=== PATIENT | male | born 1945 | race Caucasian/White ===

== ENCOUNTER 2018-02-01 07:56 | Inpatient (IN) | payer MEDICARE, BC ==
[~2018-02-01] VITALS: Ht 170.2 cm; Wt 74.8 kg
[2018-02-01] MEDS ORDERED: IV NORMAL SALINE 1000 ML BAG IV ONE (08:00)
--- NOTE | 2018-02-01 08:06 | NUR ---
pt is in room #1b. dr lovelace evaluated the pt.
[2018-02-01] MEDS ORDERED: LIPITOR (08:16)
[2018-02-01] MEDS ORDERED: WELLBUTRIN (08:16)
[2018-02-01] MEDS ORDERED: PLAVIX (08:16)
[2018-02-01] MEDS ORDERED: MONTELUKAST (08:16)
[2018-02-01] MEDS ORDERED: NEBIVOLOL (08:16)
[2018-02-01] MEDS ORDERED: AMBIEN (08:16)
[2018-02-01] MEDS ORDERED: SINGULAIR (08:16)
--- NOTE | 2018-02-01 08:17 | NUR ---
PT UNABLE TO GIVE INFORMATION ON MED DOSAGES - STATES HE DOES NOT KNOW - KEPT DOZING OFF DURING RECON ATTEMPT -STATES HE IS VERY TIRED , LITTLE SLEEP LAST NGHT.
[2018-02-01 08:27] LABS: BASOPHILS % (AUTO) 0.9 % (0.0-2.0); EOSINOPHILS # (AUTO) 0.4 K/uL (0.0-0.7); EOSINOPHILS % (AUTO) 7.3 % (0.0-7.0); HEMATOCRIT 40.3 % (36.7-47.1); HEMOGLOBIN 14.1 g/dL (12.5-16.3); LYMPHOCYTES % (AUTO) 17.9 % (20.5-51.5); MEAN CORPUSCULAR HEMOGLOBIN 32.4 uug (23.8-33.4); MEAN CORPUSCULAR HGB CONC 35 g/dL (32.5-36.3); MEAN CORPUSCULAR VOLUME 92.8 fL (73.0-96.2); MONOCYTES # (AUTO) 0.5 K/uL (2.0-10.0); MONOCYTES % (AUTO) 8.5 % (0.0-11.0); NEUTROPHILS # (AUTO) 3.6 K/uL (1.8-8.9); NEUTROPHILS % (AUTO) 65.4 % (38.5-71.5); PLATELET COUNT (AUTO) 215 K/uL (152-348); RED BLOOD CELL COUNT(AUTO) 4.34 MIL/uL (4.06-5.63); WHITE BLOOD COUNT (AUTO) 5.5 K/uL (3.6-10.2)
[2018-02-01 08:36] LABS: CARBON DIOXIDE 24 mmol/L (21-32); CHLORIDE 107 mmol/L (98-107); CREATININE 1.1 mg/dL (0.6-1.3); GLUCOSE 124 mg/dL (74-106); POTASSIUM 3.6 mmol/L (3.5-5.1); UREA NITROGEN, BLOOD 22 mg/dL (7-18)
[2018-02-01 08:50] LABS: ETHANOL < 3 MG/DL (0-0)
[2018-02-01 08:52] LABS: ALANINE AMINOTRANSFERASE 34 U/L (16-63); ALKALINE PHOSPHATASE 34 U/L (50-136); ASPARTATE AMINOTRANSFERASE 36 U/L (15-37); BILIRUBIN,DIRECT 0.1 mg/dL (0.0-0.2); BILIRUBIN,TOTAL 0.5 mg/dL (0.2-1.0); TOTAL PROTEIN, SERUM 6.4 g/dL (6.4-8.2)
[2018-02-01 09:06] LABS: THYROID STIMULATING HORMONE 1.218 mIU/mL (0.358-3.740)
--- NOTE | 2018-02-01 09:21 | NUR ---
Full telephone SBAR report received by [employer]ER[employer] CRABBERMADIE [place].
--- NOTE | 2018-02-01 09:57 | NUR ---
report was given to email marketing intern. pt was transfered to telemetry room #204.
[2018-02-01 09:59] LABS: *AMPHETAMINE, URINE NEGATIVE (NEGATIVE); *BARBITURATE, URINE NEGATIVE (NEGATIVE); *CANNABINOID, URINE POSITIVE (NEGATIVE); *COCCAINE, URINE NEGATIVE (NEGATIVE); *OPIATE, URINE NEGATIVE (NEGATIVE); *PHENCYCLIDINE SCREEN,URINE NEGATIVE (NEGATIVE)
--- NOTE | 2018-02-01 10:25 | NUR ---
Pt received from ER A&Ox4. BRP. Oriented pt to the room and updated with plan of care. Pt verbalized understanding.
--- NOTE | 2018-02-01 10:49 | NUR ---
Full SBAR report given to RN [place].
[2018-02-01 11:30] VITALS: BP 134/86
[2018-02-01] MEDS ORDERED: IV NS 1000 ML 1,000 ML IV PRN (12:01)
[2018-02-01] MEDS ORDERED: ACETAMINOPHEN 325 MG TABLET PO PRN (12:15)
[2018-02-01] MEDS ORDERED: Z GUARD REMEDY PASTE 57 GM TUBE TOP PRN (12:15)
[2018-02-01] MEDS ORDERED: ONDANSETRON 4 MG/2 ML VIAL IV PRN (12:15)
[2018-02-01] MEDS ORDERED: ENOXAPARIN SODIUM 40 MG/0.4 ML DISP.SYRIN SQ SCH (21:00)
== END 2018-02-01 14:00 | disposition home or self-care (01) | DRG 682 ==
LOC: ER 07:56 → TELE 09:58
PROVIDERS: ADMIT Nurse Practitioner Acute Care; ATTEND Nurse Practitioner Acute Care
DX: N17.0 Acute kidney failure with tubular necrosis (principal); G93.41 Metabolic encephalopathy; E86.0 Dehydration; E78.5 Hyperlipidemia, unspecified; I10 Essential (primary) hypertension; I25.10 Atherosclerotic heart disease of native coronary artery without angina pectoris; K21.9 Gastro-esophageal reflux disease without esophagitis; Z95.5 Presence of coronary angioplasty implant and graft; V49.9XXA Car occupant (driver) (passenger) injured in unspecified traffic accident, initial encounter; Y93.9 Activity, unspecified; Y99.9 Unspecified external cause status; Y92.410 Unspecified street and highway as the place of occurrence of the external cause; Z79.02 Long term (current) use of antithrombotics/antiplatelets; R40.0 Somnolence
CPT/HCPCS: 36415; 70030-TC; 70450; 71045; 80307; 83605; 84443; 85025; 85730; A4663; G0480; J7030